=== PATIENT | female | born 1975 | race Caucasian/White ===

== ENCOUNTER → 2016-08-18 | Outpatient (CLI) | payer BC ==
[~2016-08-18] MED LIST: BENT20TA PO; HUMALOG; HUMALOG SQ; PROM1SUP8 RECTAL; ZOFR4TAB3 SL
== END ==
LOC: HPND 10:50
PROVIDERS: ATTEND Obstetrics & Gynecology
DX: O36.80X0 Pregnancy with inconclusive fetal viability, not applicable or unspecified (principal); O09.521 Supervision of elderly multigravida, first trimester; Z3A.14 14 weeks gestation of pregnancy
CPT/HCPCS: 76801

== ENCOUNTER → 2016-09-20 | Outpatient (CLI) | payer BC | LOC: HPND 10:54 | PROVIDERS: ATTEND Obstetrics & Gynecology | DX: O09.521 Supervision of elderly multigravida, first trimester (principal); O24.011 Pre-existing type 1 diabetes mellitus, in pregnancy, first trimester | CPT/HCPCS: 76813 ==

== ENCOUNTER 2016-10-09 14:37 | Emergency (ER) | payer BC ==
[~2016-10-09] VITALS: Ht 172.7 cm; Wt 60.0 kg
[~2016-10-09 14:37] MED LIST changes: -BENT20TA PO; -HUMALOG SQ; -PROM1SUP8 RECTAL; -ZOFR4TAB3 SL
[2016-10-09] MEDS ORDERED: SODIUM CHLOR 0.9% 1000 ML INJ 1,000 ML IV ONE (14:45)
[2016-10-09] MEDS ORDERED: PROCHLORPERAZINE INJ 10 MG/2 ML VIAL IVS ONE (14:45)
[2016-10-09] MEDS ORDERED: diphenhydrAMINE HCL 50 MG/ML VIAL IV PUSH ONE (14:45)
[2016-10-09 14:46] VITALS: BP 168/97; PULSE 114; RESP 22; TEMP 97.7; O2SAT 96
[2016-10-09 14:49] VITALS: BP 139/97; PULSE 107; RESP 20; O2SAT 97
[2016-10-09] MEDS ORDERED: HUMALOG SQ (14:56)
--- NOTE | 2016-10-09 15:04 | PD ---
HPI Chief Complaint: GI Complaint Time Seen by Provider: 14:45 Travel History International Travel<30 days: No Contact w/Intl Traveler<30days: No History of Present Illness HPI Is a 41-year-old woman with a history of diabetes, gastroparesis, at 15 weeks 4 days who presents to the emergency department complaining of abdominal pain and vomiting. She reports that she is a history of gastroparesis and is "been in the hospital for the past 4 months". States she left the hospital at [facility] yesterday morning because she was due to go to [place] to have an procedure done. They apparently told her that she was too far along to have a single day procedure and was converted by her a 2 day 2 part procedure. She supposed to go back on Monday. Over the weekend she develop worsening abdominal pain and nausea and vomiting. She has a PICC line in place. She states she sent her home with Zofran which isn't helping. She states she normally gets IV Dilaudid when she is in the hospital for her gastroparesis pain. History Past Medical History Narrative Medical Diabetes Gastroparesis Bonnie's Chronic opiate use Tetanus Vaccination: < 5 Years Influenza Vaccination: Yes LMP: 06/21/16 : 1 Social History Alcohol Use: No Tobacco Use: No Allergies-Medications (Allergen,Severity, Reaction): Coded Allergies: Fentanyl (Verified Allergy, Severe, 10/09/16) ITCHING Morphine (Verified Allergy, Severe, 10/09/16) Reglan (Verified Allergy, Severe, 10/09/16) Zofran (Verified Allergy, Severe, 08/03/16) Uncoded Allergies: ,DURAGESIC PATCH (Allergy, Unknown, 04/15/03) Reported Meds & Prescriptions Reported Meds & Active Scripts Active Zofran Odt (Ondansetron Odt) 4 Mg Tab 4 Mg SL Q8HR PRN May substitute non-ODT form. Bentyl (Dicyclomine HCl) 20 Mg Tab 20 Mg PO QID PRN Reported Humalog Inj (Insulin Human Lispro) 1,000 Unit/10 Ml Vial 1-9 Units SQ ACHS Max dose at bedtime:( )units; sugars< 70,(0)units; sugars 150-199,(1)unit; sugars 200-249,(3)units; sugars 250-299,(5)units; sugars 300-349,(7)units; sugars more than 349,(9)units. Review of Systems Except as stated in HPI: all other systems reviewed are Neg Physical Exam Narrative GENERAL: 41 year-old woman, appears uncomfortable, nontoxic. SKIN: Warm and dry. NECK: Trachea midline. No JVD. CARDIOVASCULAR: Regular rate and rhythm. No murmur appreciated. RESPIRATORY: No accessory muscle use. Clear to auscultation. Breath sounds equal bilaterally. GASTROINTESTINAL: Abdomen is flat and soft. Moderate diffuse tenderness. MUSCULOSKELETAL: No obvious deformities. No edema. NEUROLOGICAL: Awake and alert. No obvious cranial nerve deficits. Motor grossly within normal limits. Normal speech. PSYCHIATRIC: Appropriate mood and affect; insight and judgment normal. Data Data Last Documented VS Vital Signs Date Time Temp Pulse Resp B/P Pulse Ox O2 Delivery O2 Flow Rate FiO2 10/09/16 14:49 107 20 139/97 97 Room Air 10/09/16 14:46 97.7 Orders Complete Blood Count With Diff (10/09/16 14:45) Comprehensive Metabolic Panel (10/09/16 14:45) Iv Access Insert/Monitor (10/09/16 14:45) Sodium Chlor 0.9% 1000 Ml Inj (Ns 1000 M (10/09/16 14:45) Prochlorperazine Inj (Compazine Inj) (10/09/16 14:45) Diphenhydramine Inj (Benadryl Inj) (10/09/16 14:45) Urinalysis - C+S If Indicated (10/09/16 15:02) Heart Tones (10/09/16 15:05) Labs Laboratory Tests Test 10/09/16 15:15 White Blood Count 5.1 TH/MM3 Red Blood Count 3.54 MIL/MM3 Hemoglobin 10.5 GM/DL Hematocrit 31.4 % Mean Corpuscular Volume 88.8 FL Mean Corpuscular Hemoglobin 29.8 PG Mean Corpuscular Hemoglobin 33.5 % Concent Red Cell Distribution Width 13.5 % Platelet Count 347 TH/MM3 Mean Platelet Volume 7.1 FL Neutrophils (%) (Auto) 69.2 % Lymphocytes (%) (Auto) 25.8 % Monocytes (%) (Auto) 3.9 % Eosinophils (%) (Auto) 0.5 % Basophils (%) (Auto) 0.6 % Neutrophils # (Auto) 3.5 TH/MM3 Lymphocytes # (Auto) 1.3 TH/MM3 Monocytes # (Auto) 0.2 TH/MM3 Eosinophils # (Auto) 0.0 TH/MM3 Basophils # (Auto) 0.0 TH/MM3 CBC Comment DIFF FINAL Differential Comment Sodium Level 136 MEQ/L Potassium Level 3.4 MEQ/L Chloride Level 98 MEQ/L Carbon Dioxide Level 24.4 MEQ/L Anion Gap 14 MEQ/L Blood Urea Nitrogen 9 MG/DL Creatinine 0.53 MG/DL Estimat Glomerular Filtration 127 ML/MIN Rate Random Glucose 217 MG/DL Calcium Level 8.7 MG/DL Total Bilirubin 0.4 MG/DL Aspartate Amino Transf 15 U/L (AST/SGOT) Alanine Aminotransferase 26 U/L (ALT/SGPT) Alkaline Phosphatase 78 U/L Total Protein 7.2 GM/DL Albumin 2.6 GM/DL [facility] Medical Decision Making Medical Screen Exam Complete: Yes Emergency Medical Condition: Yes Interpretation(s) LABS: CBC remarkable for mild anemia, hemoglobin 10.5 CMP Differential Diagnosis Acute on chronic abdominal pain, , UTI, dehydration, other Narrative Course Medical decision making INITIAL: Is a 41-year-old woman who apparently is recently been in the hospital for gastroparesis and nausea vomiting of , was discharged of a termination of performed but did not have that. She is back today with vomiting and abdominal pain. She is requesting IV Dilaudid. I told her that I do not prescribe IV opiates for chronic recurrent abdominal pain because I believe that it worsens the problem instead of helping. We will continue to treat her pain, nausea, dehydration. I will attempt to get records from [facility], and speak with her OB. FINAL: Patient mildly improved as far as nausea. Still complaining of pain. I called and spoke with Dr. De, data security consultant for Dr. Toscano. She is not feeling with the patient. I did Dr. Mayer cell phone number give a phone call with his out of town and unavailable. I offered to admit the patient to keep her for continued pain control, IV fluids, antiemetics. She is an appointment at 9 AM would have to leave at 7 AM. I told her I thought we would be able to accommodate her. She still states "what's the point if you cannot help me" referring to not receiving IV Dilaudid. "You're not even going to give me 1!?! ". I told her that I felt that receiving IV Dilaudid has contributed to the situation that she is in now. I don't think it's the right thing for her. I told her we would continue to work to get her pain under control using nonopiate analgesia, and treat her symptoms. She states she would prefer to be discharged. Diagnosis Primary Impression: Abdominal pain Qualified Code: R10.84 - Generalized abdominal pain Additional Impression: Vomiting Qualified Code: G43.A0 - Non-intractable cyclical vomiting with nausea Additional Instructions: Continue Zofran as a for nausea or vomiting. Continue Bentyl as needed for abdominal pain. Follow-up with your appointment tomorrow as scheduled. Return to the emergency department for any new or worsening symptoms. Med/Other Pt SpecificInfo: Prescription(s) given Scripts Ondansetron Odt (Zofran Odt)4 Mg Tab4 Mg SL Q8HR PRN (Nausea/Vomiting) #15 TAB May substitute non-ODT form. Prov:Niraj Parrish MD 10/09/16 Dicyclomine (Bentyl)20 Mg Tab20 Mg PO QID PRN (ABDOMINAL CRAMPING) #20 TAB Prov:Niraj Parrish MD 10/09/16 Disposition: 01 DISCHARGE HOME Condition: Stable Niraj Parrish MD Oct 09, 2016 15:03
[2016-10-09 15:33] LABS: AUTOMATED NEUTROPHIL # 3.5 TH/MM3 (1.8-7.7); BASOPHIL % 0.6 % (0.0-2.0); EOSINOPHIL % 0.5 % (0.0-4.0); HEMATOCRIT 31.4 % (35.0-46.0); HEMO FLAGS DIFF FINAL; LYMPH % 25.8 % (9.0-44.0); LYMPHOCYTE # 1.3 TH/MM3 (1.0-4.8); MEAN CELL VOLUME 88.8 FL (80.0-100.0); MEAN CORPUSCULAR HEMOGLOBIN 29.8 PG (27.0-34.0); MEAN CORPUSCULAR HGB CONC 33.5 % (32.0-36.0); MONO % 3.9 % (0.0-8.0); NEUT % 69.2 % (16.0-70.0); PLATELET COUNT 347 TH/MM3 (150-450); RED BLOOD COUNT 3.54 MIL/MM3 (4.00-5.30); RED CELL DISTRIBUTION WIDTH 13.5 % (11.6-17.2); WHITE BLOOD COUNT 5.1 TH/MM3 (4.0-11.0)
[2016-10-09 15:55] LABS: ALT (GPT) 26 U/L (10-53); ANION GAP 14 MEQ/L (5-15); AST (GOT) 15 U/L (15-37); BICARBONATE 24.4 MEQ/L (21.0-32.0); BLOOD UREA NITROGEN 9 MG/DL (7-18); CHLORIDE 98 MEQ/L (98-107); GLOMERULAR FILTRATION RATE 127 ML/MIN (>89); POTASSIUM 3.4 MEQ/L (3.5-5.1); SODIUM (NA) 136 MEQ/L (136-145)
[2016-10-09 15:57] LABS: ALKALINE PHOSPHATASE 78 U/L (45-117); TOTAL BILIRUBIN ADULT 0.4 MG/DL (0.2-1.0)
[2016-10-09] MEDS ORDERED: ZOFR4TAB3 SL (16:16)
[2016-10-09] MEDS ORDERED: BENT20TA PO (16:16)
== END 2016-10-09 16:43 | disposition home or self-care (01) ==
LOC: NEPC 14:37
DX: R10.84 Generalized abdominal pain (principal); G43.A0 Cyclical vomiting, in migraine, not intractable; E11.43 Type 2 diabetes mellitus with diabetic autonomic (poly)neuropathy; K31.84 Gastroparesis; Z79.4 Long term (current) use of insulin
CPT/HCPCS: 80053; 85025; 96361; 96374; 96375; 99284; J0780; J1200; J7030

== ENCOUNTER 2016-11-10 16:53 | Emergency (ER) | payer BC ==
[~2016-11-10] VITALS: Ht 172.7 cm; Wt 84.5 kg
[~2016-11-10 16:53] MED LIST changes: +BENT20TA PO; -HUMALOG; +HUMALOG SQ; +ZOFR4TAB3 SL
[2016-11-10 16:55] VITALS: BP 155/103; PULSE 109; RESP 16; TEMP 98.2; O2SAT 99
[2016-11-10] MEDS ORDERED: SODIUM CHLOR 0.9% 1000 ML INJ 1,000 ML IV ONE ×2 (17:09→17:39)
[2016-11-10] MEDS ORDERED: SODIUM CHLORIDE 0.9% FLUSH 10 ML FLUSH IVF PRN (17:15)
[2016-11-10] MEDS ORDERED: HYDROmorphone HCL PF 1 MG/ML VIAL IV PUSH ONE (17:15)
--- NOTE | 2016-11-10 17:32 | PD ---
HPI Chief Complaint: Diabetic Time Seen by Provider: 17:04 Travel History International Travel<30 days: No Contact w/Intl Traveler<30days: No Traveled to known affect area: No History of Present Illness HPI The patient's 41. She reports vomiting all day. She has had hematemesis over the last couple hours. She has abdominal pain "all over" which is severe. She reports feeling very afraid that she'll require hospital admission. Initially the history is somewhat limited due to fairly severe crying spell. Evidently her main concern is that she may have stay in the hospital and that she has a lot of personal stress. PFSH Past Medical History Blood Disorders: No Diabetes: Yes (INSULIN PUMP) Patient Takes Glucophage: No Diminished Hearing: No Gastrointestinal Disorders: Yes (gastroparesis) ?: Not LMP: NOW : 1 Past Surgical History Cholecystectomy: Yes Social History Alcohol Use: No Tobacco Use: No Substance Use: No Allergies-Medications (Allergen,Severity, Reaction): Coded Allergies: Fentanyl (Verified Allergy, Severe, 11/10/16) ITCHING Morphine (Verified Allergy, Severe, 11/10/16) Reglan (Verified Allergy, Severe, 11/10/16) Zofran (Verified Allergy, Severe, 11/10/16) Uncoded Allergies: ,DURAGESIC PATCH (Allergy, Unknown, 04/15/03) Reported Meds & Prescriptions Reported Meds & Active Scripts Active Reported Humalog Inj (Insulin Human Lispro) 1,000 Unit/10 Ml Vial 1-9 Units SQ ACHS Max dose at bedtime:( )units; sugars< 70,(0)units; sugars 150-199,(1)unit; sugars 200-249,(3)units; sugars 250-299,(5)units; sugars 300-349,(7)units; sugars more than 349,(9)units. Review of Systems ROS Limitations: Other: (patient's crying) Physical Exam Narrative GENERAL: 41-year-old female well-nourished well-developed some distress SKIN: Focused skin assessment warm/dry. HEAD: Atraumatic. Normocephalic. EYES: Pupils equal and round. No scleral icterus. No injection or drainage. ENT: No nasal bleeding or discharge. Mucous membranes pink and moist. NECK: Trachea midline. No JVD. CARDIOVASCULAR: Regular rate and rhythm. No murmur appreciated. RESPIRATORY: No accessory muscle use. Clear to auscultation. Breath sounds equal bilaterally. GASTROINTESTINAL: Abdomen soft, non-tender, nondistended. Hepatic and splenic margins not palpable. MUSCULOSKELETAL: No obvious deformities. No clubbing. No cyanosis. No edema. NEUROLOGICAL: Awake and alert. No obvious cranial nerve deficits. Motor grossly within normal limits. Normal speech. PSYCHIATRIC: Appropriate mood and affect; insight and judgment normal. Data Data Last Documented VS Vital Signs Date Time Temp Pulse Resp B/P Pulse Ox O2 Delivery O2 Flow Rate FiO2 11/10/16 16:55 98.2 109 16 155/103 99 Orders Complete Blood Count With Diff (11/10/16 17:09) Comprehensive Metabolic Panel (11/10/16 17:09) Magnesium (Mg) (11/10/16 17:09) Beta Hydroxybutyrate (Acetone) (11/10/16 17:09) Urinalysis - C+S If Indicated (11/10/16 17:09) Blood Glucose (11/10/16 17:09) Blood Glucose (11/10/16 18:09) Ecg Monitoring (11/10/16 17:09) Iv Access Insert/Monitor (11/10/16 17:09) Oximetry (11/10/16 17:09) NPO (11/10/16 17:09) Sodium Chlor 0.9% 1000 Ml Inj (Ns 1000 M (11/10/16 17:09) Sodium Chlor 0.9% 1000 Ml Inj (Ns 1000 M (11/10/16 17:39) Sodium Chloride 0.9% Flush (Ns Flush) (11/10/16 17:15) Lipase (11/10/16 17:09) Hydromorphone Pf Inj (Dilaudid Pf Inj) (11/10/16 17:15) Ondansetron Inj (Zofran Inj) (11/10/16 18:15) Prochlorperazine Inj (Compazine Inj) (11/10/16 18:30) Diphenhydramine Inj (Benadryl Inj) (11/10/16 18:30) Drug Screen, Random Urine (11/10/16 18:29) Labs Laboratory Tests Test 11/10/16 18:00 White Blood Count 5.4 TH/MM3 Red Blood Count 4.17 MIL/MM3 Hemoglobin 12.2 GM/DL Hematocrit 36.4 % Mean Corpuscular Volume 87.4 FL Mean Corpuscular Hemoglobin 29.4 PG Mean Corpuscular Hemoglobin 33.6 % Concent Red Cell Distribution Width 13.9 % Platelet Count 550 TH/MM3 Mean Platelet Volume 6.8 FL Neutrophils (%) (Auto) 59.9 % Lymphocytes (%) (Auto) 32.1 % Monocytes (%) (Auto) 5.3 % Eosinophils (%) (Auto) 0.8 % Basophils (%) (Auto) 1.9 % Neutrophils # (Auto) 3.3 TH/MM3 Lymphocytes # (Auto) 1.7 TH/MM3 Monocytes # (Auto) 0.3 TH/MM3 Eosinophils # (Auto) 0.0 TH/MM3 Basophils # (Auto) 0.1 TH/MM3 CBC Comment DIFF FINAL Differential Comment Sodium Level 138 MEQ/L Potassium Level 3.7 MEQ/L Chloride Level 99 MEQ/L Carbon Dioxide Level 27.1 MEQ/L Anion Gap 12 MEQ/L Blood Urea Nitrogen 14 MG/DL Creatinine 0.78 MG/DL Estimat Glomerular Filtration 81 ML/MIN Rate Random Glucose 272 MG/DL Calcium Level 10.1 MG/DL Magnesium Level 2.3 MG/DL Total Bilirubin 0.8 MG/DL Aspartate Amino Transf 35 U/L (AST/SGOT) Alanine Aminotransferase 55 U/L (ALT/SGPT) Alkaline Phosphatase 113 U/L Total Protein 9.2 GM/DL Albumin 4.0 GM/DL Lipase 218 U/L B-Hydroxybutyrate 0.98 MMOL/L MDM Medical Decision Making Medical Screen Exam Complete: Yes Emergency Medical Condition: Yes Differential Diagnosis Hyperglycemia, DKA, nonketotic hyperglycemic state, electrolyte imbalance Narrative Course Patient has difficult venous access. Right antecubital 20-gauge IV was placed with ultrasound-guided access. The patient received pain medication and IV fluids. CBC & BMP Diagram 11/10/16 18:00 Pain improved. Vomiting resolved. Pt will be discharged home. She refused IM and ODT Zofran. She also refused phenergan. She asked for "just one more 0.5mg" dose of Dilaudid which we agreed was suboptimal. Diagnosis Primary Impression: Abdominal pain Qualified Code: R10.84 - Generalized abdominal pain Additional Impression: Vomiting Qualified Code: R11.2 - Non-intractable vomiting with nausea, unspecified vomiting type Referrals: DR ARSHAD 2 days Additional Instructions: You have a choice when it comes to health care, and we are glad that you chose [facility] Hopefully, we have met your expectations on today's visit. You are welcome to return to [facility] at any time, as we are committed to meeting the health care needs of our community. Med/Other Pt SpecificInfo: No Change to Meds Disposition: 01 DISCHARGE HOME Condition: Stable Edgar Nolasco MD Nov 10, 2016 17:32
[2016-11-10 18:11] LABS: AUTOMATED NEUTROPHIL # 3.3 TH/MM3 (1.8-7.7); BASOPHIL # 0.1 TH/MM3 (0-0.2); BASOPHIL % 1.9 % (0.0-2.0); EOSINOPHIL % 0.8 % (0.0-4.0); HEMATOCRIT 36.4 % (35.0-46.0); HEMO FLAGS DIFF FINAL; LYMPH % 32.1 % (9.0-44.0); LYMPHOCYTE # 1.7 TH/MM3 (1.0-4.8); MEAN CELL VOLUME 87.4 FL (80.0-100.0); MEAN CORPUSCULAR HEMOGLOBIN 29.4 PG (27.0-34.0); MEAN CORPUSCULAR HGB CONC 33.6 % (32.0-36.0); MONO % 5.3 % (0.0-8.0); NEUT % 59.9 % (16.0-70.0); PLATELET COUNT 550 TH/MM3 (150-450); RED BLOOD COUNT 4.17 MIL/MM3 (4.00-5.30); RED CELL DISTRIBUTION WIDTH 13.9 % (11.6-17.2); WHITE BLOOD COUNT 5.4 TH/MM3 (4.0-11.0)
[2016-11-10] MEDS ORDERED: ONDANSETRON HCL 4 MG/2 ML VIAL IV PUSH ONE (18:15)
[2016-11-10 18:17] LABS: CHLORIDE 99 MEQ/L (98-107); POTASSIUM 3.7 MEQ/L (3.5-5.1); SODIUM (NA) 138 MEQ/L (136-145)
[2016-11-10 18:21] LABS: ANION GAP 12 MEQ/L (5-15); BICARBONATE 27.1 MEQ/L (21.0-32.0); BLOOD UREA NITROGEN 14 MG/DL (7-18); MAGNESIUM 2.3 MG/DL (1.5-2.5)
[2016-11-10 18:24] LABS: ALT (GPT) 55 U/L (10-53); AST (GOT) 35 U/L (15-37); BETA-HYDROXYBUTYRATE 0.98 MMOL/L (0.00-0.39); GLOMERULAR FILTRATION RATE 81 ML/MIN (>89)
[2016-11-10 18:25] LABS: TOTAL BILIRUBIN ADULT 0.8 MG/DL (0.2-1.0)
[2016-11-10 18:26] LABS: ALKALINE PHOSPHATASE 113 U/L (45-117)
[2016-11-10] MEDS ORDERED: diphenhydrAMINE HCL 50 MG/ML VIAL IV PUSH ONE (18:30)
[2016-11-10] MEDS ORDERED: PROCHLORPERAZINE INJ 10 MG/2 ML VIAL IV PUSH ONE (18:30)
[2016-11-10 18:46] VITALS: O2SAT 98
== END 2016-11-10 18:55 | disposition home or self-care (01) ==
LOC: PHED 16:53
DX: R11.2 Nausea with vomiting, unspecified (principal); R10.84 Generalized abdominal pain; K92.0 Hematemesis; E11.9 Type 2 diabetes mellitus without complications; Z79.4 Long term (current) use of insulin; Z87.19 Personal history of other diseases of the digestive system
CPT/HCPCS: 80053; 82010; 83690; 83735; 85025; 96374; 96375; 99284; J1170; J2405; J7030

== ENCOUNTER 2016-11-13 13:43 | Emergency (ER) | payer BC ==
[~2016-11-13] VITALS: Ht 172.7 cm; Wt 55.0 kg
[~2016-11-13 13:43] MED LIST changes: -BENT20TA PO; -ZOFR4TAB3 SL
[2016-11-13 13:45] VITALS: BP 119/87; PULSE 132; RESP 18; TEMP 98.2; O2SAT 98
--- NOTE | 2016-11-13 13:54 | PD ---
Physical Exam Date Seen by Provider: Nov 13, 2016 Time Seen by Provider: 13:51 Narrative 41 YOWF C/O N/V. BGL ELEVATED. H/O IDDM. ABD PAIN VOMITING AND WEAKNESS. NO F/C , BACK PAIN, OR URINARY SYMPTOMS. BGL THIS AM 250 VITALS REVIEWED. PT AWAITING BED PLACEMENT Data Data Last Documented VS Vital Signs Date Time Temp Pulse Resp B/P Pulse Ox O2 Delivery O2 Flow Rate FiO2 11/13/16 13:45 98.2 132 18 119/87 98 MDM Medical Record Reviewed: Yes Supervised Visit with LORETA: Yes Lobito Bonds Nov 13, 2016 13:54
--- NOTE | 2016-11-13 14:32 | PD ---
HPI Chief Complaint: GI Complaint Time Seen by Provider: 13:58 Travel History International Travel<30 days: No Contact w/Intl Traveler<30days: No Traveled to known affect area: No History of Present Illness HPI 41-year-old female came to the emergency room with history of severe abdominal pain, nausea and vomiting for past 4 days. Patient has history of diabetic gastroparesis. She has been in this hospital as well as accounting associate general multiple times for these same symptoms. Her is here with her. He said that her blood sugar was 504 days ago. Patient was seen in the emergency room and treated and discharged. He says that her recent blood sugar has been under 200 but the vomiting continues. Patient was trying to tell me what she usually gets for her pain like this but then started to gag and had to vomit PFSH Past Medical History Narrative Medical List of her past medical, surgical, social and family history is reviewed from the nursing note Blood Disorders: No Diabetes: Yes (INSULIN PUMP) Patient Takes Glucophage: No Diminished Hearing: No Gastrointestinal Disorders: Yes (gastroparesis) Tetanus Vaccination: Unknown ?: Not LMP: 11/13/16 : 1 Past Surgical History Cholecystectomy: Yes Social History Alcohol Use: No Tobacco Use: No Substance Use: No Allergies-Medications (Allergen,Severity, Reaction): Coded Allergies: Fentanyl (Verified Allergy, Severe, 11/13/16) ITCHING Morphine (Verified Allergy, Severe, 11/13/16) Reglan (Verified Allergy, Severe, 11/13/16) Zofran (Verified Allergy, Severe, 11/13/16) PT DENIES Uncoded Allergies: ,DURAGESIC PATCH (Allergy, Unknown, 04/15/03) Comments List of her allergies reviewed from the nursing note. Reported Meds & Prescriptions Reported Meds & Active Scripts Active Phenergan Supp (Promethazine HCl) 50 Mg Supp 50 Mg RECTAL Q6H PRN Zofran Odt (Ondansetron Odt) 4 Mg Tab 4 Mg SL Q6HR PRN Reported Humalog Inj (Insulin Human Lispro) 1,000 Unit/10 Ml Vial 1-9 Units SQ ACHS Max dose at bedtime:( )units; sugars< 70,(0)units; sugars 150-199,(1)unit; sugars 200-249,(3)units; sugars 250-299,(5)units; sugars 300-349,(7)units; sugars more than 349,(9)units. Narrative Medication List of home medications reviewed from the nursing note. Review of Systems Except as stated in HPI: all other systems reviewed are Neg Physical Exam Narrative GENERAL: Awake, alert, anxious, moderate distress SKIN: Focused skin assessment warm/dry. HEAD: Atraumatic. Normocephalic. EYES: Pupils equal and round. No scleral icterus. No injection or drainage. ENT: No nasal bleeding or discharge. Mucous membranes pink and moist. NECK: Trachea midline. No JVD. CARDIOVASCULAR: Regular rate and rhythm. No murmur appreciated. RESPIRATORY: No accessory muscle use. Clear to auscultation. Breath sounds equal bilaterally. GASTROINTESTINAL: Abdomen soft, non-tender, nondistended. Hepatic and splenic margins not palpable. MUSCULOSKELETAL: No obvious deformities. No clubbing. No cyanosis. No edema. NEUROLOGICAL: Awake and alert. No obvious cranial nerve deficits. Motor grossly within normal limits. Normal speech. PSYCHIATRIC: Appropriate mood and affect; insight and judgment normal. Data Data Last Documented VS Vital Signs Date Time Temp Pulse Resp B/P Pulse Ox O2 Delivery O2 Flow Rate FiO2 11/13/16 17:15 130 18 170/78 100 Room Air 11/13/16 13:45 98.2 Orders Complete Blood Count With Diff (11/13/16 14:03) Comprehensive Metabolic Panel (11/13/16 14:03) Lipase (11/13/16 14:03) Iv Access Insert/Monitor (11/13/16 14:03) Ecg Monitoring (11/13/16 14:03) Oximetry (11/13/16 14:03) Pantoprazole Inj (Protonix Inj) (11/13/16 14:15) Sodium Chlor 0.9% 1000 Ml Inj (Ns 1000 M (11/13/16 14:03) Sodium Chloride 0.9% Flush (Ns Flush) (11/13/16 14:15) Ketorolac Inj (Toradol Inj) (11/13/16 14:15) Prochlorperazine Inj (Compazine Inj) (11/13/16 14:15) Potassium Chlor 20 Meq Premix (Kcl 20 Me (11/13/16 16:15) Potassium Chloride (Kcl) (11/13/16 16:15) Sodium Chlor 0.9% 1000 Ml Inj (Ns 1000 M (11/13/16 16:15) Ondansetron Inj (Zofran Inj) (11/13/16 17:00) Potassium Chlor 10 Meq Premix (Kcl 10 Me (11/13/16 17:45) Labs Laboratory Tests Test 11/13/16 15:04 White Blood Count 10.3 TH/MM3 Red Blood Count 4.21 MIL/MM3 Hemoglobin 12.7 GM/DL Hematocrit 37.2 % Mean Corpuscular Volume 88.4 FL Mean Corpuscular Hemoglobin 30.2 PG Mean Corpuscular Hemoglobin 34.2 % Concent Red Cell Distribution Width 14.7 % Platelet Count 565 TH/MM3 Mean Platelet Volume 6.7 FL Neutrophils (%) (Auto) 73.0 % Lymphocytes (%) (Auto) 17.9 % Monocytes (%) (Auto) 8.9 % Eosinophils (%) (Auto) 0.1 % Basophils (%) (Auto) 0.1 % Neutrophils # (Auto) 7.5 TH/MM3 Lymphocytes # (Auto) 1.8 TH/MM3 Monocytes # (Auto) 0.9 TH/MM3 Eosinophils # (Auto) 0.0 TH/MM3 Basophils # (Auto) 0.0 TH/MM3 CBC Comment DIFF FINAL Differential Comment Sodium Level 142 MEQ/L Potassium Level 3.0 MEQ/L Chloride Level 100 MEQ/L Carbon Dioxide Level 30.2 MEQ/L Anion Gap 12 MEQ/L Blood Urea Nitrogen 33 MG/DL Creatinine 0.99 MG/DL Estimat Glomerular Filtration 62 ML/MIN Rate Random Glucose 303 MG/DL Calcium Level 9.9 MG/DL Total Bilirubin 0.8 MG/DL Aspartate Amino Transf 15 U/L (AST/SGOT) Alanine Aminotransferase 34 U/L (ALT/SGPT) Alkaline Phosphatase 93 U/L Total Protein 8.4 GM/DL Albumin 3.7 GM/DL Lipase 78 U/L [facility] Medical Decision Making Medical Screen Exam Complete: Yes Emergency Medical Condition: Yes Medical Record Reviewed: Yes Differential Diagnosis Diabetic gastroparesis, DKA, electrolyte abnormalities, gastritis Narrative Course 2:31 PM I was looking at her previous ER visit and patient has repeatedly requested antibiotic in fact during one of her visits where she was seen by Dr. Parrish he has elaborate he mentioned that how patient has been addicted to Dilaudid and he was trying to make her understand that the Dilaudid is making her worse in terms of her pathology. Patient was not happy with this and she wanted to leave. I have chosen to treat her pain with nonnarcotic. Awaiting for the blood test results to come back. 4:25 PM blood test results are back and her potassium is significantly low. I have ordered IV potassium replacement. Patient is hyperglycemic but anion gap is within normal range. I've ordered a second liter of IV fluid bolus. Patient will get a blood glucose level checked by fingerstick was a second liter is done. She has not vomited in the past hour and a half. I intend to discharge her home after that. 5:33 PM I was told by the nurse that the patient refused to take by mouth potassium since she was still nauseous. Although I have not seen her vomiting anymore. I ordered IV Zofran and I was told by the nurse that patient has mentioned to her that even though the Zofran is listed as an allergy she is not really allergic to Zofran. Repeat blood sugar was 195. I have ordered another 10 antecubital IV potassium. After that she can be discharged home. Procedures Procedure Narrative Emergency department US guided peripheral IV was performed with patient consent. Linear probe was used in the transverse views of the peripheral vein to assist with vascular access. Left EJ was accident was a 20-gauge needle under ultrasound guidance. Patient tolerated the procedure well. It was collected by me and line was established to start IV fluid bolus. EKG Prior to Arrival: No Diagnosis Primary Impression: Diabetic gastroparesis Additional Impressions: Hyperglycemia Hypokalemia Referrals: Primary Care Physician 3 days Additional Instructions: Please return to the ER if the condition worsens or any other new concerns. Otherwise follow-up with your primary care. Take the nausea medication as per the prescription direction. Med/Other Pt SpecificInfo: Prescription(s) given Scripts Promethazine Supp (Phenergan Supp)50 Mg Supp50 Mg RECTAL Q6H PRN (NAUSEA OR VOMITING) #4 SUPP Ref 0 Prov:Darrel Campos MD 11/13/16 Ondansetron Odt (Zofran Odt)4 Mg Tab4 Mg SL Q6HR PRN (Nausea/Vomiting) #15 TAB Ref 0 Prov:Darrel Campos MD 11/13/16 Disposition: 01 DISCHARGE HOME Condition: Stable Darrel Campos MD Nov 13, 2016 14:32 Darrel Campos MD Nov 13, 2016 14:32
[2016-11-13 15:15] VITALS: BP 147/88; PULSE 133; RESP 16; O2SAT 100
[2016-11-13 15:18] LABS: AUTOMATED NEUTROPHIL # 7.5 TH/MM3 (1.8-7.7); BASOPHIL % 0.1 % (0.0-2.0); EOSINOPHIL % 0.1 % (0.0-4.0); HEMATOCRIT 37.2 % (35.0-46.0); HEMO FLAGS DIFF FINAL; LYMPH % 17.9 % (9.0-44.0); LYMPHOCYTE # 1.8 TH/MM3 (1.0-4.8); MEAN CELL VOLUME 88.4 FL (80.0-100.0); MEAN CORPUSCULAR HEMOGLOBIN 30.2 PG (27.0-34.0); MEAN CORPUSCULAR HGB CONC 34.2 % (32.0-36.0); MONO % 8.9 % (0.0-8.0); PLATELET COUNT 565 TH/MM3 (150-450); RED BLOOD COUNT 4.21 MIL/MM3 (4.00-5.30); RED CELL DISTRIBUTION WIDTH 14.7 % (11.6-17.2); WHITE BLOOD COUNT 10.3 TH/MM3 (4.0-11.0)
[2016-11-13] MEDS: PROCHLORPERAZINE INJ 10 MG/2 ML VIAL IV PUSH ONE (15:27)
[2016-11-13] MEDS: SODIUM CHLOR 0.9% 1000 ML INJ 1,000 ML IV SCH (15:27)
[2016-11-13] MEDS: PANTOPRAZOLE SODIUM 40 MG VIAL IVP ONE (15:28)
[2016-11-13] MEDS: KETOROLAC TROMETHAMINE 30 MG/ML (IVP) VIAL IVP ONE (15:28)
[2016-11-13] MEDS: SODIUM CHLORIDE 0.9% FLUSH 10 ML FLUSH IV FLUSH PRN (15:28)
[2016-11-13 15:35] LABS: ALT (GPT) 34 U/L (10-53); ANION GAP 12 MEQ/L (5-15); AST (GOT) 15 U/L (15-37); BICARBONATE 30.2 MEQ/L (21.0-32.0); BLOOD UREA NITROGEN 33 MG/DL (7-18); CHLORIDE 100 MEQ/L (98-107); GLOMERULAR FILTRATION RATE 62 ML/MIN (>89); SODIUM (NA) 142 MEQ/L (136-145)
[2016-11-13 15:37] LABS: ALKALINE PHOSPHATASE 93 U/L (45-117); TOTAL BILIRUBIN ADULT 0.8 MG/DL (0.2-1.0)
[2016-11-13] MEDS: POTASSIUM CHLORIDE 20 MEQ CONTROLLED RELEASE TAB PO ONE (16:15)
[2016-11-13] MEDS: SODIUM CHLOR 0.9% 1000 ML INJ 1,000 ML IV ONE (16:52)
[2016-11-13] MEDS: POTASSIUM CHLOR 20 MEQ PREMIX 100 ML IV ONE (16:52)
[2016-11-13] MEDS: ONDANSETRON HCL 4 MG/2 ML VIAL IV PUSH ONE (17:00)
[2016-11-13 17:15] VITALS: BP 170/78; PULSE 130; RESP 18; O2SAT 100
[2016-11-13] MEDS ORDERED: ZOFR4TAB3 SL (17:35)
[2016-11-13] MEDS: POTASSIUM CHLOR 10 MEQ PREMIX 100 ML IV ONE (17:45)
[2016-11-13] MEDS ORDERED: PROM1SUP8 RECTAL (18:10)
== END 2016-11-13 18:25 | disposition home or self-care (01) ==
LOC: NEPC 13:43
DX: E11.43 Type 2 diabetes mellitus with diabetic autonomic (poly)neuropathy (principal); K31.84 Gastroparesis; E11.65 Type 2 diabetes mellitus with hyperglycemia; E87.6 Hypokalemia
CPT/HCPCS: 80053; 83690; 85025; 96374; 96375; 99284; C9113; J0780; J1885; J3480; J7030